=== PATIENT | female | born 1980 | race Caucasian/White ===

== ENCOUNTER 2024-05-07 17:12 | Inpatient (IN) | payer MEDICAID ==
[2024-05-07] MEDS ORDERED: METHYLERGONOVINE 0.2 MG/ML 1 ML AMP IM PRN (17:47)
[2024-05-07] MEDS ORDERED: miSOPROStoL 200 MCG TAB PO PRN (17:47)
[2024-05-07] MEDS ORDERED: TRANEXAMIC 1,000 MG/100ML-NACL 1,000 MG in EMPTY BAG 1 BAG IV PRN (17:47)
[2024-05-07] MEDS ORDERED: TERBUTALINE 1 MG/ML VIAL SQ PRN (17:47)
[2024-05-07] MEDS ORDERED: LIDOCAINE 0.5% (PF) 5 MG/ML (50 ML SDV) SQ PRN (17:47)
[2024-05-07] MEDS ORDERED: CARBOPROST TROMETHAMINE 250 MCG/ML 1 ML AMP IM PRN (17:47)
[2024-05-07] MEDS ORDERED: OXYTOCIN 10 UNIT/ML 1 ML VIAL IM PRN (17:47)
[2024-05-07] MEDS: LACTATED RINGERS 1,000 ML IV SCH (18:12)
[2024-05-07 18:13] LABS: Basophils % (A) 0 %; Eosinophils # (A) 0.1 k/uL (0-0.7); Eosinophils % (A) 1 %; HCT 40.9 % (34.0-46.0); HGB 13.4 gm/dL (11.4-16.0); Lymphocytes # (A) 2.4 k/uL (1.0-4.8); Lymphocytes % (A) 18 %; MCH 30.6 pg (25.0-35.0); MCHC 32.8 g/dL (31.0-37.0); MCV 93.3 fL (80.0-100.0); Mean Platelet Volume 7.3; Monocytes # (A) 0.6 k/uL (0-1.0); Monocytes % (A) 4 %; Neutrophils # (A) 10.6 k/uL (1.3-7.7); Neutrophils % (A) 77 %; Platelet Count 345 k/uL (150-450); RBC 4.38 m/uL (3.80-5.40); RDW 12.7 % (11.5-15.5); WBC 13.9 k/uL (3.8-10.6)
[2024-05-07] MEDS: AMPICILLIN 2,000 MG in SODIUM CHLORIDE 0.9% 100 ML IVPB STA (18:19)
[2024-05-07] MEDS ORDERED: fentaNYL (PF) 50 MCG/ML 5 ML AMP ONE (18:52)
[2024-05-07] MEDS ORDERED: SODIUM CHLORIDE 0.9% 250 ML BAG ONE (18:52)
[2024-05-07] MEDS ORDERED: ROPIVACAINE 5 MG/ML 30 ML VIAL ONE (18:52)
[2024-05-07] MEDS: OXYTOCIN 30 UNITS/500 ML NS 30 UNIT in SALINE 1 500ML.BAG IV SCH (20:40)
[2024-05-07] MEDS ORDERED: diphenhydrAMINE 50 MG/ML 1 ML VIAL IVP PRN ×2 (20:48)
[2024-05-07] MEDS ORDERED: LANOLIN CREAM 1 GM TUBE TOPICAL PRN (20:48)
[2024-05-07] MEDS ORDERED: ZOLPIDEM 5 MG TAB PO PRN (20:48)
[2024-05-07] MEDS ORDERED: diphenhydrAMINE 50 MG CAP PO PRN (20:48)
[2024-05-07] MEDS ORDERED: BENZOCAINE/MENTHOL SPRAY 1 GM/SPRAY AEROSOL TOPICAL PRN (20:48)
[2024-05-07] MEDS ORDERED: HYDROCORTISONE 2.5% RECTAL CREAM 30 GM TUBE RECTAL PRN (20:48)
[2024-05-07] MEDS ORDERED: SIMETHICONE 80 MG CHEWABLE PO PRN (20:48)
[2024-05-07] MEDS ORDERED: diphenhydrAMINE 25 MG CAP PO PRN (20:48)
--- NOTE | 2024-05-07 20:51 | P.PROBDLV ---
Vaginal Delivery Note - . Vaginal Delivery Note: Findings: Viable male infant delivered at 2037, weight of 6 pounds 8.6 ounces 43-year-old G2, P1 at 39-0/7 weeks presents to labor and delivery with complaints of regular painful contractions. Patient states contractions are approximately for 2 to 3 minutes upon arrival. Patient was noted to be 4 cm. Patient was admitted to labor and delivery. Patient was noted to be 6 cm approximately 1 hour later and she requested an epidural. Epidural was placed without difficulty by the anesthesia department. Patient underwent amniotomy and meconium stained fluid was appreciated. Patient quickly progressed to complete began pushing and had a normal spontaneous vaginal delivery of a viable male infant at 2029, weight of 6 pounds 8.6 ounces, Apgars of 9 and 9 at 1 and 5 minutes respectively. After 2-minute delay the umbilical cord was doubly clamped and cut placenta was delivered spontaneously intact with a three-vessel cord being noted spontaneous cry was noted at . On inspection the patient's vaginal vault a first-degree vaginal laceration was appreciated this was repaired with a [id number] suture of 3-0 Rapide. Hemostasis was noted afterwards. Hemostatic periurethral lacerations were appreciated no repair was needed. Uterus was noted to be firm below the umbilicus. All counts were to be correct x 2 at the end of the delivery. Patient and infant tolerated delivery well and are resting comfortably.
--- NOTE | 2024-05-07 20:53 | P.HPOB ---
History of Present Illness H&P Date: 05/07/24 Chief Complaint: IUP at 39-0/7 weeks, active labor This is a 43-year-old G2, P1 at 39-0/7 weeks that presents with complaints of regular painful contractions. Patient states she is been brad through the day but they became more uncomfortable this evening. Patient denies vaginal bleeding or loss of fluid. Patient has been receiving routine care which has been essentially uncomplicated. On blood work patient is a blood type of A+, rubella status immune, hepatitis B surface engine negative, HIV negative, RPR is nonreactive, grew beta strep positive Review of Systems Constitutional: Denies chills, Denies fatigue, Denies fever Ears, nose, mouth and throat: Denies headache Cardiovascular: Reports leg edema Respiratory: Denies dyspnea Gastrointestinal: Denies constipation, Denies diarrhea, Denies nausea, Denies vomiting Genitourinary: Reports Past Medical History Past Medical History: No Reported History History of Any Multi-Drug Resistant Organisms: None Reported Past Surgical History: Cholecystectomy Past Anesthesia/Blood Transfusion Reactions: No Reported Reaction Past Psychological History: No Psychological Hx Reported Smoking Status: Former smoker Past Drug Use History: None Reported - Past Family History Father Family Medical History: Diabetes Mellitus Medications and Allergies Home Medications Medication Instructions Recorded Confirmed Type Aspirin 1 tab PO DAILY 05/07/24 05/07/24 History Vit No.179/Iron/Folic 1 tab PO DAILY 05/07/24 05/07/24 History [ Tablet] Allergies Allergy/AdvReac Type Severity Reaction Status Date / Time sulfamethoxazole Allergy Rash/Hives Verified 05/07/24 17:39 [From Bactrim] trimethoprim [From Bactrim] Allergy Rash/Hives Verified 05/07/24 17:39 Exam Osteopathic Statement: *. No significant issues noted on an osteopathic structural exam other than those noted in the History and Physical/Consult. Vital Signs Temp Pulse Resp BP Pulse Ox 05/07/24 17:47 98.2 F 86 16 140/82 97 Intake and Output 05/07/24 05/07/24 05/07/24 06:59 14:59 22:59 Other: Weight 73.028 kg Targeted physical exam was performed in general is well-nourished well-developed female in obvious labor, breathing is nonlabored, heart has a regular rate and rhythm, abdomen is gravid, on cervical exam she is 4/80/-2 station, heart tones noted be category 1 and she is brad every 2 to 3 minutes. Results Result Diagrams: 05/07/24 18:00 Abnormal Lab Results - Last 24 Hours (Table) 05/07/24 Range/Units 18:00 WBC 13.9 H (3.8-10.6) k/uL Neutrophils # 10.6 H (1.3-7.7) k/uL Assessment and Plan (1) Term Current Visit: Yes Status: Acute Code(s): Z34.90 - ENCNTR FOR SUPRVSN OF NORMAL , UNSP, UNSP TRIMESTER SNOMED Code(s): 67230809 (2) Active labor Current Visit: Yes Status: Acute Code(s): WNZ6159 - SNOMED Code(s): 622331145 (3) Positive GBS test Current Visit: Yes Status: Acute Code(s): B95.1 - STREPTOCOCCUS, GROUP B, CAUSING DISEASES CLASSD [facility] SNOMED Code(s): 550059442 Plan: 43-year-old G2, P1 at 39 weeks presents in active labor. Patient is admitted to labor and delivery. Antibiotics were begun part for GBS prophylaxis. Patient does request epidural when appropriate. Anticipate spontaneous vaginal delivery.
[2024-05-07] MEDS: IBUPROFEN 600 MG TAB PO SCH (21:35)
[2024-05-07] MEDS: AMPICILLIN 1,000 MG in SODIUM CHLORIDE 0.9% 50 ML IVPB SCH (22:44)
--- NOTE | 2024-05-08 09:27 | P.PNOBGVD ---
Subjective - Subjective Principal diagnosis: day #1 Interval history: Patient is doing well this morning. She is ambulating and voiding without difficulty. Her lochia is minimal to moderate. was taken back to special care nursery for a low temp. Patient reports: Reports appetite normal, Reports voiding normally, Reports pain well controlled, Reports ambulating normally : other (In special care nursery secondary to low temp) Objective - Latest Vital Signs Latest vital signs: Vital Signs Temp Pulse Resp BP Pulse Ox 05/08/24 03:38 98 F 80 18 106/72 96 05/07/24 22:50 97.6 F 88 16 118/69 05/07/24 22:35 87 18 116/70 05/07/24 22:20 86 18 127/77 05/07/24 22:05 20 138/83 90 L 05/07/24 21:50 127/79 05/07/24 21:35 86 18 129/81 05/07/24 21:20 18 143/74 05/07/24 21:05 85 18 139/85 05/07/24 20:50 97.9 F 105 H 18 147/94 05/07/24 17:47 98.2 F 86 16 140/82 97 Intake and Output 05/07/24 05/08/24 05/08/24 22:59 06:59 14:59 Intake Total 778.133 600 Output Total 272 Balance 506.133 600 Intake: Intake, IV Titration 178.133 Amount Oxytocin 30 Units/500 ml 178.133 Ns 30 unit In Saline 1 500ml.bag @ Per Protocol IV .Q0M [facility] Rx#:[id number] Oral 600 600 Output: Estimated Blood Loss 100 Output, Quantitative 172 Blood Loss Other: # Voids 1 1 Weight 73.028 kg - Exam Extremities: Present: normal, edema Abdomen: Present: normal appearance, soft Uterus: Present: normal, firm - Labs Labs: Abnormal Lab Results - Last 24 Hours (Table) 05/07/24 Range/Units 18:00 WBC 13.9 H (3.8-10.6) k/uL Neutrophils # 10.6 H (1.3-7.7) k/uL Assessment and Plan (1) Term Current Visit: Yes Status: Acute Code(s): Z34.90 - ENCNTR FOR SUPRVSN OF NORMAL , UNSP, UNSP TRIMESTER SNOMED Code(s): 33014315 (2) Active labor Current Visit: Yes Status: Acute Code(s): ILG8294 - SNOMED Code(s): 417315987 (3) Positive GBS test Current Visit: Yes Status: Acute Code(s): B95.1 - STREPTOCOCCUS, GROUP B, CAUSING DISEASES CLASSD [facility] SNOMED Code(s): 288006209 Plan: 43-year-old G2 now P2 status postnormal spontaneous vaginal delivery. Patient is doing well . She is upset as her remains in the nursery for IV antibiotics and low temp. Patient had a positive GBS culture and was treated x 1 just under the 4-hour anz for treatment. Plan to continue routine care, plan for discharge home tomorrow
[2024-05-08] MEDS: SENNOSIDES-DOCUSATE SODIUM 1 EACH TAB PO SCH (10:09)
[2024-05-08] MEDS: PRENATAL VIT-IRON-FOLIC ACID 1 EACH TABLET PO SCH (10:44)
[2024-05-09] MEDS: ACETAMINOPHEN TAB 325 MG TAB PO PRN (01:39)
[2024-05-09 08:12] VITALS: BP 132/78; PULSE 84; RESP 16; TEMP 98.3
--- NOTE | 2024-05-09 09:39 | P.DS ---
Providers Date of admission: 05/07/24 17:39 Expected date of discharge: 05/09/24 Attending physician: Audrey Horne Primary care physician: Stated None - Discharge Diagnosis(es) (1) Term Current Visit: Yes Status: Acute (2) Active labor Current Visit: Yes Status: Acute (3) Positive GBS test Current Visit: Yes Status: Acute (4) Status post normal vaginal delivery Current Visit: Yes Status: Acute (5) Obstetrical laceration, first degree Current Visit: Yes Status: Acute Hospital Course: 43yo G2 now P2 presented to labor and delivery with complaints of regular painful contractions all day. Patient was noted to be 4 cm. Patient was 39-0/7 weeks upon presentation Patient has been receiving routine care which has been essentially uncomplicated. Patient noted good movement all day, denied vaginal bleeding or loss of fluid Patient was admitted to labor and delivery and was soon noted to be 6 cm. Patient desired epidural. Epidural was placed without difficulty by the anesthesia department. Patient was noted to be GBS positive and any antibiotics were begun upon presentation. Patient was noted to be 7 cm and rupture of membranes was performed with thick meconium stained fluid noted. Patient quickly progressed to complete began pushing and had a normal spontaneous vaginal delivery of a viable male infant at 2037, weight of 6 pounds 8 ounces. Patient did sustain a small first-degree vaginal laceration. This was repaired in the usual fashion with 3-0 Rapide. Hemostasis was noted after repair. Patient's course has been uneventful. On this day #2 she is ambulating and voiding without difficulty. She is tolerating a regular diet without nausea or vomiting. She states her pain is well-controlled. She denies concerns. She did state to day #2 secondary to her being in the nursery. Patient Condition at Discharge: Good Plan - Discharge Summary New Discharge Prescriptions: No Action Aspirin 1 tab PO DAILY Vit No.179/Iron/Folic [ Tablet] 1 tab PO DAILY Discharge Medication List Aspirin 1 tab PO DAILY 05/07/24 [History] Vit No.179/Iron/Folic [ Tablet] 1 tab PO DAILY 05/07/24 [History] Follow up Appointment(s)/Referral(s): Audrey Horne DO [Doctor of Osteopathic Medicine] - 6 Weeks Patient Instructions/Handouts: Vaginal Delivery (GEN), Vaginal Delivery (DC) Activity/Diet/Wound Care/Special Instructions: No intercourse, tampons or tub baths. Call with any fever, shakes or chills, with any pain not alleviated by over the counter meds, or with any quesions or concerns. [id number] ibuprofen 600 mg or 3 tablets every 6 hours as needed for pain. Discharge Disposition: HOME SELF-CARE
== END 2024-05-09 12:10 | disposition home or self-care (01) | DRG 807 ==
LOC: FBPOP 17:12 → 4FBP 17:39
PROVIDERS: ADMIT Obstetrics & Gynecology Obstetrics; ATTEND Obstetrics & Gynecology Obstetrics
PROC: 10907ZC Drainage of Amniotic Fluid, Therapeutic from Products of Conception, Via Natural or Artificial Opening (ICD-10-PCS; principal; 2024-05-07)
PROC: 10E0XZZ Delivery of Products of Conception, External Approach (ICD-10-PCS; principal; 2024-05-07)
PROC: 0HQ9XZZ Repair Perineum Skin, External Approach (ICD-10-PCS; principal; 2024-05-07)
DX: O77.0 Labor and delivery complicated by meconium in amniotic fluid (principal); Z37.0 Single live birth; O70.0 First degree perineal laceration during delivery; O71.82 Other specified trauma to perineum and vulva; O99.824 Streptococcus B carrier state complicating childbirth; Z28.310 Unvaccinated for COVID-19; Z3A.39 39 weeks gestation of pregnancy; Z79.82 Long term (current) use of aspirin; Z79.899 Other long term (current) drug therapy; Z87.891 Personal history of nicotine dependence
CPT/HCPCS: 59025; 85025; 86850; 86900; 86901; 99213